=== PATIENT | female | born 1940 | race Caucasian/White ===

== ENCOUNTER 2023-11-27 14:43 | Emergency (ER) | payer OTHER, SELFPAY ==
[2023-11-27 14:45] VITALS: BP 129/83
--- NOTE | 2023-11-27 15:45 | ED.MUSCINJ ---
HPI-Injury
General
Chief Complaint: Musculo-Skeletal Complaint
Source: patient
Exam Limitations: none
Time Seen by Provider: 11/27/23 15:34
History of Present Illness-Injury
Initial Injury comments:
83-year-old female presents with sisters who state the patient slid out of bed this morning landing on her left arm. She complained of pain and swelling. She was initially seen at an urgent care in [place] where they were. They were told she had
a fracture and possible dislocation of her shoulder and was sent here for further evaluation. No other injuries other than a scratch left arm. No blood thinners. No other complaints at this time
Phy Exam
Physical Exam
Physical Exam:
General: Well-appearing female no acute respiratory distress
HEENT: Normocephalic atraumatic
Heart: Regular rate and rhythm no murmurs
Lungs: Clear no wheeze
Musculoskeletal exam: Left shoulder ecchymotic and swollen tender diffusely. Left elbow nontender
Extremities: No cyanosis
Skin: Warm no rash
Injury Course
Orders/Labs/Results
Orders:
Orders
11/27/23 15:43
CR Shoulder, Trauma - Left Urgent
Comment:
Reason For Exam: pain after fall
11/27/23 16:35
Ibuprofen [Motrin] 400 mg PO NOW STA
11/27/23 16:42
Sling Left-Treatment ONCE
MDM/Problems Addressed
Differential Diagnosis Includes:
Left shoulder pain after fall. I have visualized the 1 x-ray that was taken at the urgent care which shows a fracture of the humeral neck. There is subluxation versus dislocation of the humeral head. Complete shoulder series was ordered.
*Critical Care Note
Total Time (30-74mins, 75-104mins- exclusive of procedures): Not Applicable
Update Note
Update Note:
Personally visualized x-rays and discussed with orthopedics and reviewed radiology report. There is a fracture of the humeral neck with subluxation. There is no dislocation. Orthopedics will see in follow-up. Indira ordered sling applied.
Stable for discharge
ED Attending Note
-
Portions of this chart may have been created with voice recognition software.� Occasional wrong word or��sound alike� substitutions may have occurred due to the inherent limitations of voice recognition software.
Discharge Plan
Departure
Patient Disposition: Home (Routine Discharge)
Date of Disposition: 11/27/23
Time of Disposition: 16:43
Patient with high blood pressure during this ER visit?: No
Discharge Problem:
Fracture of proximal end of humerus
Instructions: Muscle and Bone Pain (DC)
Referrals:
Misael Sarmiento MD [Active] -
Activity Restrictions/Additional Instructions:
Use sling for comfort. Continue with ice ibuprofen and Tylenol. Return if worse otherwise follow-up orthopedics
Interventions
Interventions:
*Risk Screen - Suicide Last Done: 11/27/23 16:02
*General Assessment Last Done: 11/27/23 14:45
*Neglect/Abuse Screening Last Done: 11/27/23 16:02
ED- Fall Risk Assessment Last Done: 11/27/23 16:02
*ED COVID-19 Vaccine History Last Done: 11/27/23 14:45
ED-Musculoskeletal Assessment Last Done: 11/27/23 15:58
Discharge Date and Time
Print Language: [id number]
[2023-11-27] MEDS: MOTRIN 400 MG PO (16:42)
[2023-11-27 17:17] VITALS: BP 131/73
== END 2023-11-27 17:18 | disposition home or self-care (01) ==
LOC: EMR 14:43
PROVIDERS: EMERGENCY PHYSICIAN Emergency Medicine; FAMILY PHYSICIAN Internal Medicine
DX: S42.212A Unspecified displaced fracture of surgical neck of left humerus, initial encounter for closed fracture (principal); S40.012A Contusion of left shoulder, initial encounter; W06.XXXA Fall from bed, initial encounter
CPT/HCPCS: 99283; 73030